=== PATIENT | male | born 1960 | race Asian ===

== ENCOUNTER 2018-04-20 12:09 | Emergency (ER) | payer BC ==
[2018-04-20 13:52] LABS: PARTIAL THROMBOPLASTIN TIME 22.8 SECONDS (24.5-33.6)
[2018-04-20 13:53] LABS: POTASSIUM 3.7 mmol/L (3.6-5.2); SODIUM 136 mmol/L (136-145)
[2018-04-20 14:06] LABS: PLATELET COUNT 127 K/uL (142-355)
== END 2018-04-20 14:10 | disposition home or self-care (01) ==
LOC: ED 12:09
DX: R07.89 Other chest pain (principal); R00.0 Tachycardia, unspecified
CPT/HCPCS: 36415; 80053; 81000; 82550; 84484; 85027; 85610; 85730; 93005; 99284

== ENCOUNTER 2019-02-19 09:23 | Outpatient (CLI) | payer OTHER ==
[2019-02-19 10:15] LABS: PLATELET COUNT 114 K/uL (142-355)
[2019-02-19 10:37] LABS: POTASSIUM 4.2 mmol/L (3.6-5.2)
== END 2019-02-20 05:47 | disposition home or self-care (01) ==
LOC: US 09:23
PROVIDERS: Internal Medicine Gastroenterology
DX: K74.69 Other cirrhosis of liver (principal)
CPT/HCPCS: 36415; 80053; 85027; 85730

== ENCOUNTER 2021-03-17 13:48 | Emergency (ER) | payer OTHER ==
[~2021-03-17] VITALS: Ht 165.1 cm; Wt 74.8 kg
[2021-03-17 14:01] VITALS: TEMP 97.3
[2021-03-17 14:43] LABS: PLATELET COUNT 112 K/uL (142-355)
[2021-03-17 14:45] LABS: POTASSIUM 4.1 mmol/L (3.6-5.2); SODIUM 135 mmol/L (136-145)
[2021-03-17 14:57] LABS: PARTIAL THROMBOPLASTIN TIME 24.1 SECONDS (24.5-33.6)
[2021-03-17 18:31] VITALS: BP 131/68
== END 2021-03-17 18:31 | disposition home or self-care (01) ==
LOC: ED 13:48
PROVIDERS: Emergency Medicine Emergency Medical Services
DX: R07.89 Other chest pain (principal); X50.9XXA Other and unspecified overexertion or strenuous movements or postures, initial encounter; Y92.89 Other specified places as the place of occurrence of the external cause
CPT/HCPCS: 80053; 83735; 84484; 85027; 85379; 85610; 85730; 93005; 96360; 96365; 96375; 99284; J1815; J3475

== ENCOUNTER 2021-04-22 16:00 | Emergency (ER) | payer OTHER ==
[~2021-04-22] VITALS: Ht 165.1 cm; Wt 74.8 kg
[2021-04-22 16:11] VITALS: TEMP 97.7
[2021-04-22 17:11] VITALS: BP 120/70
== END 2021-04-22 17:12 | disposition home or self-care (01) ==
LOC: ED 16:00
DX: S80.01XA Contusion of right knee, initial encounter (principal); S80.11XA Contusion of right lower leg, initial encounter; V89.2XXA Person injured in unspecified motor-vehicle accident, traffic, initial encounter; Y92.89 Other specified places as the place of occurrence of the external cause
CPT/HCPCS: 99283